=== PATIENT | male | born 1940 | race Two or more races ===

== ENCOUNTER → 2016-10-01 | Outpatient (CLI) | payer MEDICARE, OTHER | LOC: RAD 07:40 | PROVIDERS: ATTEND Internal Medicine | DX: C18.6 Malignant neoplasm of descending colon (principal) | CPT/HCPCS: 78815; A9552 ==

== ENCOUNTER → 2016-12-24 | Outpatient (CLI) | payer MEDICARE, OTHER ==
--- NOTE | 2016-12-27 08:39 | RADIOLOGY REPORT (SQ) ---
EXAM DESCRIPTION: PET CT SKULL/THIGH COMPLETED DATE/TIME: 12/24/2016 12:32 pm REASON FOR STUDY: COLON CA (C18.6) C18.6 MALIGNANT NEOPLASM OF DESCENDING COLON COMPARISON: CT abdomen pelvis 05/30/2014 MRI abdomen 04/08/2016 PET-CT 08/09/2014, 04/03/2016, 10/01/2016 RADIONUCLIDE AND DOSE: 9.6 mCi F18 FDG The route of agent administration: Intravenous FASTING BLOOD SUGAR: 143 mg/dl CONTRAST TYPE AND DOSE: No CT contrast given. TECHNIQUE: Blood glucose level was verified. Above dose of FDG was injected intravenously. 2-D seg mented attenuation correction images were obtained from the base of the skull to the midthighs. Nonc ontrast CT images were obtained for attenuation correction and fusion with emission images. CT image s were performed without oral or intravenous contrast and are not sensitive for parenchymal lesions. A series of overlapping emission PET images were obtained. Images reviewed and manipulated at [facility] work station by the radiologist. Images stored on PACS. LIMITATIONS: None. FINDINGS: HEAD AND NECK: No areas of abnormal metabolic activity in the soft tissues of the head and neck. CHEST: No areas of abnormal metabolic activity in the chest. ABDOMEN AND PELVIS: Post dissection left lobe liver and posterior right lobe liver. A benign non me tabolic 1 cm cyst is present in the sub- diaphragmatic surface of the liver axial image 100, similar compared to previous imaging studies. There is an 11 mm non metabolic hypodensity just ventral to the right portal vein on axial image 121. This may represent a cyst. A metastatic nodule could not entirely be excluded. Consider MRI liver for followup. No areas of abnormal metabolic activity in the abdomen or pelvis. Expected physiologic activity is p resent in the genitourinary system and bowel. There is a punctate focus of increased uptake in the left half of the prostate with SUV 4.3. This is abnormal but nonspecific. PROXIMAL LOWER EXTREMITIES: No areas of abnormal metabolic activity in the soft tissues of the lower extremities. BONES: No abnormal metabolic activity in the visualized skeleton. ADDITIONAL CT FINDINGS: Post cholecystectomy. Colon diverticulosis without CT signs of acute diverti culitis. Small umbilical hernia containing nonobstructed small bowel loops. Small hiatal hernia. OTHER: Liver activity 2.2 SUV, blood pool activity 1.8 SUV IMPRESSION: No definite hypermetabolic lesions New low-density non metabolic 11 mm probable cyst ventral to the right portal vein on axial image 121 . MRI may be useful for followup. TECHNICAL DOCUMENTATION: JOB ID: [id number] [employer]- All Rights Reserved
== END ==
LOC: RAD 07:49
PROVIDERS: ATTEND Internal Medicine
DX: C18.6 Malignant neoplasm of descending colon (principal)
CPT/HCPCS: 78815; A9552

== ENCOUNTER → 2017-03-27 | Outpatient (CLI) | payer MEDICARE, OTHER ==
--- NOTE | 2017-03-29 10:58 | RADIOLOGY REPORT (SQ) ---
EXAM DESCRIPTION: PET CT SKULL/THIGH COMPLETED DATE/TIME: 03/27/2017 8:01 pm REASON FOR STUDY: COLON CANCER C18.6 MALIGNANT NEOPLASM OF DESCENDING COLON COMPARISON: Prior PET-CT exams 01/03/2017, 10/01/2016, 04/03/2016, 08/09/2014 RADIONUCLIDE AND DOSE: 10.6 mCi F18 FDG The route of agent administration: Intravenous FASTING BLOOD SUGAR: 92 mg/dl CONTRAST TYPE AND DOSE: No CT contrast given. TECHNIQUE: Blood glucose level was verified. Above dose of FDG was injected intravenously. 2-D seg mented attenuation correction images were obtained from the base of the skull to the midthighs. Nonc ontrast CT images were obtained for attenuation correction and fusion with emission images. CT image s were performed without oral or intravenous contrast and are not sensitive for parenchymal lesions. A series of overlapping emission PET images were obtained. Images reviewed and manipulated at [facility] work station by the radiologist. Images stored on PACS. LIMITATIONS: None. FINDINGS: HEAD AND NECK: No areas of abnormal metabolic activity in the soft tissues of the head and neck. CHEST: No areas of abnormal metabolic activity in the chest. Stable non metabolic 6 mm nodule just a king the right hemidiaphragm unchanged since 2013 ABDOMEN AND PELVIS: A 1.5 cm cyst is present in the anterior sub- diaphragmatic surface of the liver axial image 110. This is non metabolic. A 1.4 cm cyst inferior to the right portal vein is present on axial image 127. This is similar accou nting for differences in technique compared to PET-CT images 7717 and 61026. It is difficult to obta in a reliable SUV in this area due to free breathing and adjacent normal liver. Measurements range f rom 2 to 2.2 which is liver background. PROXIMAL LOWER EXTREMITIES: No areas of abnormal metabolic activity in the soft tissues of the lower extremities. BONES: No abnormal metabolic activity in the visualized skeleton. ADDITIONAL CT FINDINGS: Post cholecystectomy. Post resection of liver metastatic lesions. Colonic d iverticuli without CT signs of acute diverticulitis. Umbilical hernia containing nonobstructed bowel loops. Tiny hiatal hernia. OTHER: No other significant findings. IMPRESSION: No definite PET-CT evidence of recurrent colon cancer. TECHNICAL DOCUMENTATION: JOB ID: [id number] [employer]- All Rights Reserved
== END ==
LOC: RAD 14:35
PROVIDERS: ATTEND Internal Medicine
DX: C18.6 Malignant neoplasm of descending colon (principal)
CPT/HCPCS: 78815; A9552

== ENCOUNTER → 2017-06-26 | Outpatient (CLI) | payer MEDICARE, OTHER ==
--- NOTE | 2017-06-28 08:47 | RADIOLOGY REPORT (SQ) ---
EXAM DESCRIPTION: PET CT SKULL/THIGH COMPLETED DATE/TIME: 06/27/2017 9:28 am REASON FOR STUDY: COLON CANCER C18.6 MALIGNANT NEOPLASM OF DESCENDING COLON COMPARISON: Pet-CT 04/06/2017, 12/24/2016, 10/01/2016, 04/03/2016, 08/09/2014 RADIONUCLIDE AND DOSE: 10.1 mCi F18 FDG The route of agent administration: Intravenous FASTING BLOOD SUGAR: 104 mg/dl CONTRAST TYPE AND DOSE: No CT contrast given. TECHNIQUE: Blood glucose level was verified. Above dose of FDG was injected intravenously. 2-D seg mented attenuation correction images were obtained from the base of the skull to the midthighs. Nonc ontrast CT images were obtained for attenuation correction and fusion with emission images. CT image s were performed without oral or intravenous contrast and are not sensitive for parenchymal lesions. A series of overlapping emission PET images were obtained. Images reviewed and manipulated at [facility] work station by the radiologist. Images stored on PACS. LIMITATIONS: None. FINDINGS: HEAD AND NECK: No areas of abnormal metabolic activity in the soft tissues of the head and neck. CHEST: No areas of abnormal metabolic activity in the chest. ABDOMEN AND PELVIS: No areas of abnormal metabolic activity in the abdomen or pelvis. Expected physi ologic activity is present in the genitourinary system and bowel. PROXIMAL LOWER EXTREMITIES: No areas of abnormal metabolic activity in the soft tissues of the lower extremities. BONES: No abnormal metabolic activity in the visualized skeleton. ADDITIONAL CT FINDINGS: Post cholecystectomy, old liver resection,, left hemicolectomy. Umbilical h ernia with nonobstructed small bowel loops present. Sigmoid colon diverticuli without CT signs of ac julien diverticulitis OTHER: Liver background activity 2.4 SUV. Blood pool background activity 1.75 SUV IMPRESSION: No hypermetabolic lesions worrisome for metastatic disease TECHNICAL DOCUMENTATION: JOB ID: [id number]- All Rights Reserved
== END ==
LOC: RAD 14:58
PROVIDERS: ATTEND Internal Medicine
DX: C18.6 Malignant neoplasm of descending colon (principal)
CPT/HCPCS: 78815; A9552

== ENCOUNTER → 2017-09-30 | Outpatient (CLI) | payer MEDICARE, OTHER ==
--- NOTE | 2017-09-30 10:43 | RADIOLOGY REPORT (SQ) ---
EXAM DESCRIPTION: MRI CERVICAL SPINE COMBO COMPLETED DATE/TIME: 09/30/2017 9:10 am REASON FOR STUDY: COLON CA (C18.6) C18.6 MALIGNANT NEOPLASM OF DESCENDING COLON COMPARISON: None. TECHNIQUE: Sagittal and Axial imaging includes T1, T2, STIR and gradient echo sequences. T1 post emily olinium sequences. CONTRAST TYPE AND DOSE: 15 mL Multihance. RENAL FUNCTION: GFR > 60. LIMITATIONS: None. FINDINGS: ALIGNMENT: There is reversal of cervical curvature likely due to muscle spasm. VERTEBRAE: Intact. BONE MARROW: Edematous reactive marrow endplate changes are present of C3-4 and C7-T1. DISCS: Diffuse decreased T2 weighted intervertebral disc signal. Bony ankylosis across the C6-7 disc space HARDWARE: None in the spine. CORD AND BASE OF BRAIN: Normal in size and signal intensity. SOFT TISSUES: No soft tissue masses. C1-C2: No significant spinal stenosis. C2-C3: No significant spinal stenosis or exit foraminal stenosis. C3-C4: Broad diffuse posterior disc bulge and bony spurring is present without central stenosis. Mod erate bilateral foraminal narrowing right greater than left. C4-C5: Minimal posterior disc bulging and bony spurring. No central stenosis. Mild bilateral forami nal narrowing. C5-C6: Broad diffuse posterior disc bulge and bony spurring is present without central stenosis. No right foraminal narrowing. Moderate left foraminal narrowing. C6-C7: Broad diffuse posterior disc bulging is present. Bulky bilateral facet and ligament hypertrop hy. No central stenosis. No foraminal narrowing. C7-T1: Broad diffuse posterior disc bulging is present without central stenosis. Mild bilateral fora inocente narrowing. UPPER THORACIC: Incompletely imaged. No significant spinal stenosis or exit foraminal stenosis. ENHANCEMENT: No abnormal spinal cord or cervical nerve root enhancement. There is enhancement along the left C7-T1 facet joint from arthritis OTHER: No other significant finding. IMPRESSION: Diffuse degenerative changes as above. No findings worrisome for metastatic disease to the cervical vertebra or cervical cord. COMMENT: None. TECHNICAL DOCUMENTATION: JOB ID: [id number] [employer]- All Rights Reserved Reading location - IP/workstation name: [email or web address]-[email or web address]
--- NOTE | 2017-09-30 10:57 | RADIOLOGY REPORT (SQ) ---
EXAM DESCRIPTION: MRI LUMBAR SPINE COMBO COMPLETED DATE/TIME: 09/30/2017 9:10 am REASON FOR STUDY: COLON CA (C18.6) C18.6 MALIGNANT NEOPLASM OF DESCENDING COLON COMPARISON: PET-CT 06/26/2017 MRI abdomen 04/08/2016 TECHNIQUE: Sagittal and Axial imaging includes T1, T1 post gadolinium, T2, STIR and gradient echo se quences. Coronal T2/HASTE imaging. CONTRAST TYPE AND DOSE: 15 mL Prohance. RENAL FUNCTION: GFR > 60. LIMITATIONS: None. FINDINGS: VISUALIZED UPPER ABDOMEN: Limited evaluation. No acute or suspicious findings suggested. SEGMENTATION: No transitional anatomy. The lowest well-developed disc space is labeled L5-S1. ALIGNMENT: Anatomic. VERTEBRAE AND MARROW SIGNAL: A subacute 25% upper endplate compression fracture of L1 is present. No significant posterior retropulsion of bony fragments. There is edema paralleling the upper endplate , with contrast enhancement. This most likely represents a benign osteoporotic L1 upper endplate com pression deformity. At L2, of 1.5 cm diameter central upper endplate depression is present without overall loss of verteb ral body height. There is mild adjacent edema and contrast enhancement. This likely represents suba cute central upper endplate depression at L2. At T11, there is minimal irregularity of the superior superior vertebral body endplate with a 12 mm s urrounding halo of edema and contrast enhancement. This most likely represents the beginnings of a S chmorl's node at T11. Metastatic disease could not entirely be excluded. DISC SIGNAL: Normal. No significant abnormal signal or loss of height. POSTERIOR ELEMENTS: There is facet arthropathy at T12-L1, left greater than right. Facet joint enha ncement is present. HARDWARE: None in the spine. CORD AND CONUS: Normal in size and signal intensity. Conus at the T12-L1 level. No abnormal distal t horacic spinal cord, conus, or lumbar nerve root enhancement SOFT TISSUES: No aortic aneurysm seen. No bulky retroperitoneal adenopathy or mass. No paraspinal mas s or fluid. T10-11: At the upper edge of the field of view. Mild bilateral facet arthropathy. No central or fo raminal encroachment. T11-12: Mild bilateral facet arthropathy. No central or foraminal encroachment. T12-L1: No significant central canal impingement from upper endplate L1 compression deformity. Mild bilateral facet hypertrophy. No foraminal encroachment. L1-L2: Minimal posterior disc bulging is present with mild bilateral facet and ligament hypertrophy. No significant central canal narrowing. Very mild bilateral foraminal narrowing without exiting ner ve root impingement. L2-L3: Mild diffuse posterior disc bulge is present with moderate bilateral facet and ligament hypert rophy. Borderline central canal narrowing. No foraminal stenosis. L3-L4: Broad diffuse posterior disc bulge is present with moderate bilateral facet and ligament hyper trophy. Mild central canal stenosis. Mild bilateral inferior foraminal narrowing without exiting L3 nerve root impingement. L4-L5: Broad diffuse posterior disc bulging and mild bony spurring is present. A moderate to large r ight paracentral and proximal foraminal disc herniation is present. This flattens the thecal sac at the takeoff of the right proximal L5 nerve root in the lateral recess. These findings along with bul ky bilateral facet and ligament hypertrophy cause high-grade central canal stenosis. These findings are best shown on axial T2 images 28-30. Elsewhere at L4-5, there is moderate right and mild left foraminal narrowing without definite exiting L4 nerve root impingement. L5-S1: Mild diffuse posterior disc bulge and bony spurring. Minimal bilateral facet hypertrophy. No central stenosis. Mild bilateral foraminal narrowing. SACRUM: Visualized upper sacrum intact. ENHANCEMENT: No abnormal conus or lumbar nerve root enhancement. Please see the paragraphs above. OTHER: No other significant findings. IMPRESSION: Subacute upper endplate compression deformity at L1 with 25% loss of height and associat ed left-sided T12-L1 facet arthropathy. Schmorl's node in the upper endplate of L2. Probable Schmorl's node in the upper endplate of T11. High-grade central canal stenosis at L4-5 TECHNICAL DOCUMENTATION: JOB ID: [id number] [employer]- All Rights Reserved Reading location - IP/workstation name: [facility]-[email or web address]
== END ==
LOC: RAD 07:21
PROVIDERS: ATTEND Internal Medicine
DX: C18.6 Malignant neoplasm of descending colon (principal)
CPT/HCPCS: 82565; 72156; 72158; A9577

== ENCOUNTER → 2017-10-03 | Outpatient (CLI) | payer MEDICARE, OTHER ==
--- NOTE | 2017-10-03 09:56 | RADIOLOGY REPORT (SQ) ---
EXAM DESCRIPTION: MRI THORACIC SPINE COMBO COMPLETED DATE/TIME: 10/03/2017 8:32 am REASON FOR STUDY: COLON CA C18.6 MALIGNANT NEOPLASM OF DESCENDING COLON COMPARISON: MRI lumbar spine 09/30/2017 MRI cervical spine 09/30/2017 PET-CT 06/26/2017 TECHNIQUE: Sagittal and Axial imaging includes T1, T2, STIR and gradient echo sequences. T1 post ga dolinium sequences. CONTRAST TYPE AND DOSE: 15 mL Multihance. RENAL FUNCTION: GFR > 60. LIMITATIONS: None. FINDINGS: LOCALIZER: No worrisome findings. ALIGNMENT: Normal. VERTEBRAE and BONE MARROW: Along the upper endplate of T11, there is a 1.2 cm focus of decreased T1 w eighted marrow signal paralleling the posterior upper endplate. A tiny defect in the upper endplate of the vertebral body at T11 is present. There is a surrounding halo of edema on STIR images. This most likely represents a Schmorl's node in the upper endplate of T11. Metastatic disease could not e ntirely be excluded. At the bottom edge of the field of view, there is of subacute 25% upper endplate compression deformit y of L1. HARDWARE: None in the spine. CORD: Normal in size and signal intensity. SOFT TISSUES: No soft tissue masses. THORACIC DISCS T1-T12: No significant spinal stenosis or exit foraminal stenosis. Minimal posterior disc bulge at T6-7. ENHANCEMENT: No abnormal thoracic cord or thoracic nerve root contrast-enhancement. Mild contrast en hancement adjacent to the T11 upper endplate defect, and mild contrast enhancement along the upper en dplate compression at L1. OTHER: No other significant finding. IMPRESSION: Probable Schmorl's node in the upper endplate of T11. TECHNICAL DOCUMENTATION: JOB ID: [id number] [employer]- All Rights Reserved Reading location - IP/workstation name: [email or web address]
== END ==
LOC: RAD 07:32
PROVIDERS: ATTEND Internal Medicine
DX: C18.6 Malignant neoplasm of descending colon (principal)
CPT/HCPCS: 72157; A9577

== ENCOUNTER → 2017-10-23 | Outpatient (CLI) | payer MEDICARE, OTHER ==
--- NOTE | 2017-10-25 10:58 | RADIOLOGY REPORT (SQ) ---
EXAM DESCRIPTION: PET CT SKULL/THIGH COMPLETED DATE/TIME: 10/23/2017 9:06 pm REASON FOR STUDY: COLON CANCER C18.6 MALIGNANT NEOPLASM OF DESCENDING COLON COMPARISON: 06/26/2017 RADIONUCLIDE AND DOSE: 10.62 mCi F18 FDG The route of agent administration: Intravenous FASTING BLOOD SUGAR: 121 mg/dl CONTRAST TYPE AND DOSE: No CT contrast given. TECHNIQUE: Blood glucose level was verified. Above dose of FDG was injected intravenously. 2-D seg mented attenuation correction images were obtained from the base of the skull to the midthighs. Nonc ontrast CT images were obtained for attenuation correction and fusion with emission images. CT image s were performed without oral or intravenous contrast and are not sensitive for parenchymal lesions. A series of overlapping emission PET images were obtained. Images reviewed and manipulated at [facility] work station by the radiologist. Images stored on PACS. LIMITATIONS: None. FINDINGS: HEAD AND NECK: No areas of abnormal metabolic activity in the soft tissues of the head and neck. CHEST: No areas of abnormal metabolic activity in the chest. ABDOMEN AND PELVIS: No areas of abnormal metabolic activity in the abdomen or pelvis. Expected physi ologic activity is present in the genitourinary system and bowel. PROXIMAL LOWER EXTREMITIES: No areas of abnormal metabolic activity in the soft tissues of the lower extremities. BONES: No abnormal metabolic activity in the visualized skeleton. ADDITIONAL CT FINDINGS: Old hepatic dissection. Old transverse colon resections. Anterior abdominal wall hernia. OTHER: No other significant findings. IMPRESSION: No evidence of metastatic disease. TECHNICAL DOCUMENTATION: JOB ID: [id number] [employer]- All Rights Reserved Reading location - IP/workstation name: [facility]
== END ==
LOC: RAD 17:49
PROVIDERS: ATTEND Internal Medicine
DX: C18.6 Malignant neoplasm of descending colon (principal)
CPT/HCPCS: 78815; A9552

== ENCOUNTER → 2017-12-05 | Outpatient (CLI) | payer MEDICARE, OTHER ==
--- NOTE | 2017-12-05 17:03 | RADIOLOGY REPORT (SQ) ---
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 LIMITATIONS: None. FINDINGS: AP CHEST: No lytic expansile lesions of the ribs. Lungs are free of focal infiltrates. C ardiac silhouette size, katie unremarkable. LATERAL SKULL: No worrisome bone lesions. AP BOTH HUMERI: No worrisome bone lesions. TWO-VIEW LUMBAR SPINE: 25% upper endplate compression of L2 is present with bony sclerosis along the upper endplate of L2. This has progressed since the MRI 09/30/2017. There is now vertebra plana defo rmity at L1 with the with focal accentuated kyphosis at the thoracolumbar junction. Some retropulsio n of the bony cortex of L1 is seen. TWO-VIEW THORACIC SPINE: No acute thoracic compression deformity. TWOVIEW CERVICAL SPINE: Diffuse degenerative changes with prior fusion at C6-7. No compression defo rmity or lytic lesions. AP PELVIS: No worrisome bone lesions. AP BOTH FEMURS: No worrisome bone lesions. OTHER: No other significant finding. 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
== END ==
LOC: RAD 15:32
PROVIDERS: ATTEND Internal Medicine
DX: C90.00 Multiple myeloma not having achieved remission (principal)
CPT/HCPCS: 77075

== ENCOUNTER 2018-01-26 15:38 | Emergency (ER) | payer MEDICARE ==
[2018-01-26 16:05] VITALS: BP 104/89
== END 2018-01-26 18:02 | disposition left against medical advice (07) ==
LOC: ER 15:38
DX: Z53.21 Procedure and treatment not carried out due to patient leaving prior to being seen by health care provider (principal)

== ENCOUNTER → 2018-01-26 | Outpatient (CLI) | payer MEDICARE, OTHER ==
--- NOTE | 2018-01-26 15:45 | RADIOLOGY REPORT (SQ) ---
EXAM DESCRIPTION: HIP RIGHT AP/LATERAL COMPLETED DATE/TIME: 01/26/2018 3:29 pm REASON FOR STUDY: PAIN, WEAKNESS M62.81 MUSCLE WEAKNESS (GENERALIZED) COMPARISON: Skeletal survey 12/05/2017 NUMBER OF VIEWS: Two views. TECHNIQUE: AP pelvis and additional frog-leg view of the right hip. LIMITATIONS: None. FINDINGS: MINERALIZATION: Osteopenic RIGHT HIP: Subacute right subcapital femoral neck fracture with varus angulation. This report was ca lled to Dr Pollack. LEFT HIP: No fracture or dislocation. No worrisome bone lesions. PUBIS AND ISCHIUM: No fracture. PELVIS: No fracture. SACRUM: No fracture or dislocation. No worrisome bone lesions. LOWER LUMBAR SPINE: No fracture or dislocation. No worrisome bone lesions. No significant disc disea se. SOFT TISSUES: No findings. OTHER: No other significant finding. IMPRESSION: Subacute right subcapital femoral neck fracture with varus angulation. This is likely a pathologic fracture given history of myeloma. TECHNICAL DOCUMENTATION: JOB ID: [id number] [employer]- All Rights Reserved Reading location - IP/workstation name: [email or web address]
--- NOTE | 2018-01-26 15:47 | RADIOLOGY REPORT (SQ) ---
EXAM DESCRIPTION: L SPINE WHOLE COMPLETED DATE/TIME: 01/26/2018 3:29 pm REASON FOR STUDY: PAIN, WEAKNESS M62.81 MUSCLE WEAKNESS (GENERALIZED) COMPARISON: Skeletal survey 12/05/2017 NUMBER OF VIEWS: Five views including obliques. TECHNIQUE: AP, lateral, oblique, and sacral radiographic images acquired of the lumbar spine. LIMITATIONS: None. FINDINGS: MINERALIZATION: Osteopenic SEGMENTATION: Normal. No transitional anatomy. ALIGNMENT: Normal. VERTEBRAE: Vertebra plana deformity at L1 from patient's myeloma. This is similar compared to the sk eletal survey 12/05/2017. There is 25 to 50% compression upper endplate L2, similar compared to skeletal survey 12/05/2017. DISCS: Preserved height. No significant osteophytes or end plate irregularity. POSTERIOR ELEMENTS: Pedicles and facets are intact. No pars defect or posterior arch defects. HARDWARE: None in the spine. PARASPINAL SOFT TISSUES: Normal. PELVIS: Not in the field of view. SI joints intact. OTHER: No other significant finding. IMPRESSION: Stable vertebra plana deformity at L1, and stable 25 to 50% compression deformity of L2 as compared to skeletal survey 12/05/2017. TECHNICAL DOCUMENTATION: JOB ID: [id number] [employer]- All Rights Reserved Reading location - IP/workstation name: [email or web address]
== END ==
LOC: RAD 14:28
PROVIDERS: ATTEND Internal Medicine
DX: M84.451D Pathological fracture, right femur, subsequent encounter for fracture with routine healing (principal); M62.81 Muscle weakness (generalized)
CPT/HCPCS: 72110

== ENCOUNTER → 2018-03-14 | Outpatient (CLI) | payer MEDICARE, OTHER | LOC: RAD 09:06 | PROVIDERS: ATTEND Neurological Surgery | DX: C90.00 Multiple myeloma not having achieved remission (principal) | CPT/HCPCS: 82565 ==

== ENCOUNTER → 2018-03-20 | Outpatient (CLI) | payer MEDICARE, OTHER ==
--- NOTE | 2018-03-20 15:33 | RADIOLOGY REPORT (SQ) ---
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 TECHNIQUE: Axial images acquired through the cervical spine without intravenous contrast. Images re viewed with lung, soft tissue and bone windows. Reconstructed coronal and sagittal MPR images review ed. Images stored on PACS. All CT scanners at this facility use dose modulation, iterative reconstruction, and/or weight based d osing when appropriate to reduce radiation dose to as low as reasonably achievable (ALARA). [facility]: Dose Right [facility]: CareDose [facility]: Dose Right [facility]: Teradose 4D [facility]: Yikuaiqu RADIATION DOSE: CT Rad equipment meets quality standard of care and radiation dose reduction techniq ues were employed. CTDIvol: 19.0 mGy. DLP: 401 mGy-cm. mGy. LIMITATIONS: None. FINDINGS: Bones are osteopenic. There is reversal of the lordotic curve. There is disc space narro wing and osteophyte formation at multiple levels status post fusion at C6-7. More localized osteopen ia at the fusion level. No well circumscribed lytic lesions and this area was not hypermetabolic on PET in October 2017. No high-grade central stenosis. Moderate to severe neural foraminal stenosis at mu ltiple levels. Prevertebral soft tissues are normal. IMPRESSION: Focal osteopenia at the fusion level but no lesions typical of myeloma. TECHNICAL DOCUMENTATION: JOB ID: [id number] Quality ID # [id number]: Final reports with documentation of one or more dose reduction techniques (e.g., Au tomated exposure control, adjustment of the mA and/or kV according to patient size, use of iterative reconstruction technique) 2010 [employer]- All Rights Reserved Reading location - IP/workstation name: [email or web address]
--- NOTE | 2018-03-20 15:41 | RADIOLOGY REPORT (SQ) ---
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 TECHNIQUE: Axial images acquired through the thoracic spine without intravenous contrast. Images re viewed with lung, soft tissue and bone windows. Reconstructed coronal and sagittal MPR images review ed. Images stored on PACS. All CT scanners at this facility use dose modulation, iterative reconstruction, and/or weight based d osing when appropriate to reduce radiation dose to as low as reasonably achievable (ALARA). [facility]: Dose Right [facility]: CareDose [facility]: Dose Right [facility]: Teradose 4D [facility]: [employer] RADIATION DOSE: CT Rad equipment meets quality standard of care and radiation dose reduction techniq ues were employed. CTDIvol: 22.1 mGy. DLP: 737 mGy-cm. mGy. LIMITATIONS: None. FINDINGS: VISUALIZED LUNGS: No acute findings. SOFT TISSUES: No soft tissue swelling. No masses. VERTEBRAL BODIES: Osteopenia. Mild height loss at T12 which appears chronic. DISCS: Degenerative disc disease at multiple levels. ALIGNMENT: Normal. TRANSVERSE PROCESSES, POSTERIOR ELEMENTS: Hypertrophic osteophytes at multiple levels. HARDWARE: None in the spine. VISUALIZED RIBS: No fractures. OTHER: No other significant finding. IMPRESSION: Diffuse osteopenia. No lesions typical of myeloma. TECHNICAL DOCUMENTATION: JOB ID: [id number] Quality ID # [id number]: Final reports with documentation of one or more dose reduction techniques (e.g., Au tomated exposure control, adjustment of the mA and/or kV according to patient size, use of iterative reconstruction technique) 2010 [employer]- All Rights Reserved Reading location - IP/workstation name: [email or web address]
--- NOTE | 2018-03-20 15:44 | RADIOLOGY REPORT (SQ) ---
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 TECHNIQUE: Axial images acquired through the lumbar spine without intravenous contrast. Images revi ewed with lung, soft tissue and bone windows. Reconstructed coronal and sagittal MPR images reviewed . All images stored on PACS. All CT scanners at this facility use dose modulation, iterative reconstruction, and/or weight based d osing when appropriate to reduce radiation dose to as low as reasonably achievable (ALARA). [facility]: Dose Right [facility]: CareDose [facility]: Dose Right [facility]: Teradose 4D [facility]: [email or web address] RADIATION DOSE: CT Rad equipment meets quality standard of care and radiation dose reduction techniq ues were employed. CTDIvol: 29.1 mGy. DLP: 863 mGy-cm. mGy. LIMITATIONS: None. FINDINGS: Diffuse osteopenia. No well-circumscribed lytic lesions typical of myeloma. Compression fractures L1 with vertebra plana and retropulsion narrowing the canal at least 50%. Compression frac ture L2 approximately 70% height loss without significant retropulsion. Depression superior endplate L4 without significant retropulsion. IMPRESSION: Osteoporotic compression fractures. No definite lesions typical of myeloma. TECHNICAL DOCUMENTATION: JOB ID: [id number] Quality ID # [id number]: Final reports with documentation of one or more dose reduction techniques (e.g., Au tomated exposure control, adjustment of the mA and/or kV according to patient size, use of iterative reconstruction technique) 2010 [employer]- All Rights Reserved Reading location - IP/workstation name: [email or web address]
== END ==
LOC: RAD 14:06
PROVIDERS: ATTEND Neurological Surgery
DX: C90.00 Multiple myeloma not having achieved remission (principal); M80.88XG Other osteoporosis with current pathological fracture, vertebra(e), subsequent encounter for fracture with delayed healing
CPT/HCPCS: 72125; 72128; 72131

== ENCOUNTER → 2018-08-02 | Outpatient (CLI) | payer MEDICARE, OTHER ==
--- NOTE | 2018-08-02 11:22 | RADIOLOGY REPORT (SQ) ---
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 Images revi ewed with lung, soft tissue and bone windows. Reconstructed coronal and sagittal MPR images reviewed . All images stored on PACS. All CT scanners at this facility use dose modulation, iterative reconstruction, and/or weight based d osing when appropriate to reduce radiation dose to as low as reasonably achievable (ALARA). [facility]: Dose Right [facility]: CareDose [facility]: Dose Right [facility]: Teradose 4D [facility]: [employer] RADIATION DOSE: CT Rad equipment meets quality standard of care and radiation dose reduction techniq ues were employed. CTDIvol: 29.7 mGy. DLP: 746 mGy-cm. mGy. LIMITATIONS: None. FINDINGS: SEGMENTATION: Normal. No transitional anatomy. ALIGNMENT: Accentuated kyphosis at the thoracolumbar junction from the L1 vertebra plana deformity VERTEBRAL BODIES: 50% compression of T12 is present on the current study, stable compared to prior CT lumbar spine 03/20. No retropulsion of T12 bony cortex. L1 vertebra plana deformity with retropulsion of the posterior bony cortex causing greater than 50% c entral canal stenosis, best shown on axial image 18 and sagittal image 20. This is similar compared to 03/20/2018. Greater than 50% compression of L2 vertebral body is present, similar compared to 03/20/2018 but progr essive since 01/26/2018. Stable central upper endplate depressions without loss of height at the L3 and L4 levels, unchanged f rom CT 03/20/2018 DISCS: High-grade central canal stenosis at the L1 level related to retropulsion of bony fragments of the L1 vertebral body. At L2-3, mild central canal narrowing results from broad diffuse disc bulge and moderate bilateral fa cet and ligament hypertrophy. No significant foraminal narrowing. At L3-4, mild central canal stenosis results from broad diffuse posterior disc bulging and moderate b ilateral facet and ligament hypertrophy. No significant foraminal stenosis. At L4-5, grade 1 anterolisthesis of L4 over L5 along with broad diffuse disc bulge and bulky bilatera l facet hypertrophy causes at least moderate central canal narrowing. There is mild bilateral inferi or foraminal narrowing without exiting L4 nerve root impingement. At L5-S1, broad diffuse posterior disc bulge right greater than left and facet hypertrophy is present without central stenosis. There is moderate right and left foraminal narrowing without definite exi ting L5 nerve root impingement. PEDICLES, TRANSVERSE PROCESSES: No acute findings FACETS, POSTERIOR ELEMENTS: Multilevel facet arthropathy HARDWARE: None in the spine. SOFT TISSUES: No significant or acute finding in adjacent soft tissues. OTHER: Overall decreased bone density with permeative lytic pattern compatible with clinical diagnosi s of myeloma IMPRESSION: Multiple lumbar compression deformities similar compared to CT lumbar spine 03/20/2018. Central canal stenosis at the L1 level, stable. TECHNICAL DOCUMENTATION: JOB ID: [id number] Quality ID # [id number]: Final reports with documentation of one or more dose reduction techniques (e.g., Au tomated exposure control, adjustment of the mA and/or kV according to patient size, use of iterative reconstruction technique) 2010 [employer]- All Rights Reserved Reading location - IP/workstation name: [email or web address]
== END ==
LOC: RAD 10:23
PROVIDERS: ATTEND Neurological Surgery
DX: C90.00 Multiple myeloma not having achieved remission (principal)
CPT/HCPCS: 72131

== ENCOUNTER → 2018-09-03 | Outpatient (CLI) | payer MEDICARE, OTHER ==
--- NOTE | 2018-09-04 09:57 | RADIOLOGY REPORT (SQ) ---
EXAM DESCRIPTION: PET CT WHOLE BODY COMPLETED DATE/TIME: 09/03/2018 9:01 pm REASON FOR STUDY: MULTIPLE MYELOMA C90.00 MULTIPLE MYELOMA NOT HAVING ACHIEVED REMISSION COMPARISON: 10/23/2017 RADIONUCLIDE AND DOSE: 10.8 mCi F18 FDG The route of agent administration: Intravenous FASTING BLOOD SUGAR: 109 mg/dl CONTRAST TYPE AND DOSE: No CT contrast given. TECHNIQUE: Blood glucose level was verified. Above dose of FDG was injected intravenously. 2-D seg mented attenuation correction images were obtained through the entire body. Noncontrast CT images we re obtained for attenuation correction and fusion with emission images. CT images were performed wit hout oral or intravenous contrast and are not sensitive for parenchymal lesions. A series of overlap ping emission PET images were obtained. Images reviewed and manipulated at independent work station by the radiologist. Images stored on PACS. LIMITATIONS: Artifact from right hip arthroplasty. FINDINGS: HEAD AND NECK: No areas of abnormal metabolic activity in the soft tissues of the head and neck. CHEST: No areas of abnormal metabolic activity in the chest. ABDOMEN AND PELVIS: No areas of abnormal metabolic activity in the abdomen or pelvis. Expected physi ologic activity is present in the genitourinary system and bowel. LOWER EXTREMITIES: No areas of abnormal metabolic activity in the soft tissues of the lower extremiti es. BONES: No abnormal metabolic activity in the visualized skeleton. ADDITIONAL CT FINDINGS: Anterior abdominal wall hernia containing nondilated bowel. Partial hepatic resection. Partial colectomy. Sigmoid diverticulosis. OTHER: No other significant findings. IMPRESSION: Stable appearance. No evidence of metastatic disease. TECHNICAL DOCUMENTATION: JOB ID: [id number] [employer]- All Rights Reserved Reading location - IP/workstation name: [email or web address]
== END ==
LOC: RAD 14:55
PROVIDERS: ATTEND Internal Medicine
DX: C90.00 Multiple myeloma not having achieved remission (principal)
CPT/HCPCS: 78816; A9552

== ENCOUNTER → 2018-09-05 | Outpatient (CLI) | payer MEDICARE, OTHER ==
--- NOTE | 2018-09-05 16:44 | RADIOLOGY REPORT (SQ) ---
EXAM DESCRIPTION: BONE SURVEY COMPLETE COMPLETED DATE/TIME: 09/05/2018 4:05 pm REASON FOR STUDY: C79.51 SECONDARY MALIGNANT NEOPLASM OF BONE C90.00 MULTIPLE MYELOMA NOT HAV C90.00 MULTIPLE MYELOMA NOT HAVING ACHIEVED REMISSION C79.51 SECONDARY MALIGNANT NEOPLASM OF BONE COMPARISON: 12/05/2017 TECHNIQUE: Images of the axial and proximal appendicular skeleton are obtained, along with lateral s kull and frontal chest films. LIMITATIONS: None. FINDINGS: AP CHEST: No bony findings. Lungs are clear. LATERAL SKULL: No worrisome bone lesions. AP BOTH HUMERI: No worrisome bone lesions. TWO-VIEW LUMBAR SPINE: There is a new T12 compression deformity with approximately 50% loss of height . Vertebra plana at L1 is unchanged. There has been progression of the L2 fracture. TWO-VIEW THORACIC SPINE: T12 compression deformity with approximately 50% loss of height new from lloyd or study. AP PELVIS: No worrisome bone lesions. Postsurgical changes on the right with a total prosthesis in p lace. AP BOTH FEMURS: No worrisome bone lesions. OTHER: No other significant finding. IMPRESSION: Progression of the L2 compression fracture. New T12 compression deformity as described. L1 vertebra plana deformity is again noted. TECHNICAL DOCUMENTATION: JOB ID: [id number] [employer]- All Rights Reserved Reading location - IP/workstation name: [email or web address]
== END ==
LOC: RAD 15:33
PROVIDERS: ATTEND Internal Medicine
DX: C90.00 Multiple myeloma not having achieved remission (principal); C79.51 Secondary malignant neoplasm of bone; M48.56XD Collapsed vertebra, not elsewhere classified, lumbar region, subsequent encounter for fracture with routine healing
CPT/HCPCS: 77075

== ENCOUNTER → 2019-02-11 | Outpatient (CLI) | payer MEDICARE, OTHER ==
--- NOTE | 2019-02-12 09:35 | RADIOLOGY REPORT (SQ) ---
EXAM DESCRIPTION: PET CT WHOLE BODY COMPLETED DATE/TIME: 02/12/2019 1:07 am REASON FOR STUDY: (C90.00)MULTIPLE MYELOMA NOT HAVING ACHIEVED REMISSION C90.00 MULTIPLE MYELOMA NO T HAVING ACHIEVED REMISSION COMPARISON: Prior PET-CT 09/03/2018, 10/23/2017, 03/27/2017, 04/03/2016, 08/09/2014 Skeletal survey 09/05/2018 RADIONUCLIDE AND DOSE: 12 mCi F18 FDG The route of agent administration: Intravenous FASTING BLOOD SUGAR: 112 mg/dl CONTRAST TYPE AND DOSE: No CT contrast given. TECHNIQUE: Blood glucose level was verified. Above dose of FDG was injected intravenously. 2-D seg mented attenuation correction images were obtained through the entire body. Noncontrast CT images we re obtained for attenuation correction and fusion with emission images. CT images were performed wit hout oral or intravenous contrast and are not sensitive for parenchymal lesions. A series of overlap ping emission PET images were obtained. Images reviewed and manipulated at independent work station by the radiologist. Images stored on PACS. LIMITATIONS: None. FINDINGS: HEAD AND NECK: No areas of abnormal metabolic activity in the soft tissues of the head and neck. CHEST: No areas of abnormal metabolic activity in the chest. ABDOMEN AND PELVIS: No areas of abnormal metabolic activity in the abdomen or pelvis. Expected physi ologic activity is present in the genitourinary system and bowel. LOWER EXTREMITIES: No areas of abnormal metabolic activity in the soft tissues of the lower extremiti es. BONES: No abnormal metabolic activity in the visualized skeleton. Multiple compression deformities a re present ADDITIONAL CT FINDINGS: Right total hip replacement. Partial colectomy and partial resection right l obe liver. Subxiphoid fatty ventral hernia. Midline umbilical region ventral hernia with nonobstruc stacey small bowel. Benign 15 mm cyst sub- diaphragmatic surface left lobe liver, stable ectasia ascend ing thoracic aorta 4 cm in diameter. OTHER: No other significant findings. IMPRESSION: No hypermetabolic lesions worrisome for active myeloma or metastatic disease given histo ry of colon cancer TECHNICAL DOCUMENTATION: JOB ID: [id number]- All Rights Reserved Reading location - IP/workstation name: [email or web address]
== END ==
LOC: RAD 15:52
PROVIDERS: ATTEND Physician Assistant Medical
DX: C90.00 Multiple myeloma not having achieved remission (principal); C18.6 Malignant neoplasm of descending colon
CPT/HCPCS: 78816; A9552

== ENCOUNTER → 2019-11-20 | Outpatient (CLI) | payer MEDICARE, OTHER ==
--- NOTE | 2019-11-21 10:00 | RADIOLOGY REPORT (SQ) ---
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 TECHNIQUE: Blood glucose level was verified. Above dose of FDG was injected intravenously. 2-D seg mented attenuation correction images were obtained through the entire body. Noncontrast CT images we re obtained for attenuation correction and fusion with emission images. CT images were performed wit hout oral or intravenous contrast and are not sensitive for parenchymal lesions. A series of overlap ping emission PET images were obtained. Images reviewed and manipulated at independent work station by the radiologist. Images stored on PACS. LIMITATIONS: None. FINDINGS: HEAD AND NECK: No areas of abnormal metabolic activity in the soft tissues of the head and neck. CHEST: No areas of abnormal metabolic activity in the chest. ABDOMEN AND PELVIS: On axial image 169/523, minimal soft tissue density is present along the right up per quadrant pericolic fat measuring about 3 cm in length by 0.4 cm in width. This exhibits metaboli c activity on PET, with SUV of 5. This could represent early peritoneal recurrence of tumor. Soft t issue density is new compared to PET-CT in 2019 LOWER EXTREMITIES: No areas of abnormal metabolic activity in the soft tissues of the lower extremiti es. BONES: No abnormal metabolic activity in the visualized skeleton. There are multiple lytic areas and compression deformities throughout the spine. Multiple lytic lesions throughout the pelvis. These are non metabolic ADDITIONAL CT FINDINGS: 1 cm right lower pole thyroid nodule, non metabolic. Stable ectasia of the t horacic aorta. Stable non metabolic 4 mm granuloma of right lung base. Stable 1.5 cm cysts in the s ubdiaphragmatic right lobe liver and inferior right lobe liver. Stable changes post partial right he patectomy and partial colectomy. Stable ventral hernias in the subxiphoid and paraumbilical regions. Right total hip replacement. OTHER: Liver background 1.9 SUV. Blood pool background 1.7 SUV IMPRESSION: Small focus of metabolically active soft tissue density in the right upper quadrant dano colic fat. TECHNICAL DOCUMENTATION: JOB ID: [id number] 2010 [employer]- All Rights Reserved Reading location - IP/workstation name: [email or web address]
== END ==
LOC: RAD 11-13 08:55
PROVIDERS: ATTEND Internal Medicine
DX: C90.00 Multiple myeloma not having achieved remission (principal); E04.1 Nontoxic single thyroid nodule
CPT/HCPCS: 78816; A9552

== ENCOUNTER → 2020-07-01 | Outpatient (CLI) | payer MEDICARE, OTHER ==
--- NOTE | 2020-07-03 09:27 | RADIOLOGY REPORT (SQ) ---
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 RADIONUCLIDE AND DOSE: 8.75 mCi F18 FDG The route of agent administration: Intravenous FASTING BLOOD SUGAR: 111 mg/dl CONTRAST TYPE AND DOSE: No CT contrast given. TECHNIQUE: Blood glucose level was verified. Above dose of FDG was injected intravenously. 2-D seg mented attenuation correction images were obtained from the base of the skull to the midthighs. Nonc ontrast CT images were obtained for attenuation correction and fusion with emission images. CT image s were performed without oral or intravenous contrast and are not sensitive for parenchymal lesions. A series of overlapping emission PET images were obtained. Images reviewed and manipulated at [facility] work station by the radiologist. Images stored on PACS. LIMITATIONS: None. FINDINGS: HEAD AND NECK: No areas of abnormal metabolic activity in the soft tissues of the head and neck. CHEST: The 8 mm nodule in the right lower lobe (image 141 of series 3) is unchanged in size and it de monstrates no abnormal uptake on PET. There are no areas of abnormal metabolic activity in the chest . ABDOMEN AND PELVIS: The liver demonstrates homogeneous FDG uptake with an average SUV of 2.6. There is expected physiologic activity throughout the gastrointestinal and genitourinary tracts. There are no areas of abnormal uptake in the abdomen and pelvis. PROXIMAL LOWER EXTREMITIES: No areas of abnormal metabolic activity in the soft tissues of the lower extremities. BONES: No areas of abnormal metabolic uptake in the abdomen and pelvis. ADDITIONAL CT FINDINGS: Status post partial colectomy and right hepatectomy. The low-attenuation les ions in the liver are unchanged in size and number and demonstrate no abnormal uptake on PET. The sp syd is normal in size. There is colonic diverticulosis without diverticulitis. There is a ventral hernia defect that contains fat and nonobstructed loops of bowel. There are chronic compression defo rmities of the T12, L1, L2, L3 and L4 vertebral bodies associated with focal kyphotic angulation of t he thoracolumbar junction at L1. OTHER: No other findings. IMPRESSION: Negative PET-CT. TECHNICAL DOCUMENTATION: JOB ID: [id number] 2010 [employer]- All Rights Reserved Reading location - IP/workstation name: [email or web address]
== END ==
LOC: RAD 09:56
PROVIDERS: ATTEND Internal Medicine
DX: C18.6 Malignant neoplasm of descending colon (principal)
CPT/HCPCS: 78815; A9552